=== PATIENT | male | born 1990 | race Caucasian/White ===

== ENCOUNTER 2024-01-06 19:38 | Emergency (ER) | payer OTHER ==
[2024-01-06 19:50] VITALS: RESP 18; TEMP 98.3
[2024-01-06] MEDS: KETOROLAC 15 MG/ML 1 ML VIAL IM STA (20:13)
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
--- NOTE | 2024-01-06 20:41 | XR ---
Left knee. HISTORY: Pain following trauma COMPARISON: None. TECHNIQUE: 3 views of left knee were obtained. FINDINGS: There is no fracture, dislocation, or intra-articular abnormality. There is no joint effusion. There is a calcification in the quadriceps tendon consistent with tendinitis. IMPRESSION: 1. No acute trauma. 2. Calcific tendinitis involving the quadriceps tendon. [facility], , 01/06/2024 8:39 PM
[2024-01-06 21:23] VITALS: BP 156/88; PULSE 100
[2024-01-06] MEDS: HYDROmorphone 1 MG/ML 1 ML SYRINGE IM STA (21:24)
== END 2024-01-06 21:32 | disposition home or self-care (01) ==
LOC: EC 19:38
CPT/HCPCS: 96372; 99283